=== PATIENT | female | born 1955 | race Caucasian/White ===

== ENCOUNTER → 2021-01-24 14:41 | Outpatient (CLI) | payer OTHER, SELFPAY ==
--- NOTE | 2021-01-24 14:43 | DI.US.S_ITS ---
PROCEDURE: US ABDOMEN LIMITED INDICATIONS: Elevated LFT's, Postmenopausal, Routine screening TECHNIQUE: Real-time focused scanning was performed of the abdomen, with image documentation. COMPARISON: None. FINDINGS: Liver is normal in size and homogeneous in echotexture. Small 5 millimeter echogenic foci are noted in the gallbladder which are nonmobile and nonshadowing likely represent small polyps. Tiny stones are echogenic bile is noted in the dependent portion of the gallbladder. No gallbladder wall thickening with gallbladder wall measuring less than 1 millimeter. No pericholecystic fluid. No sonographic Mejía sign. Biliary tree is nondilated. Common bile duct measures 3.0 millimeters. Pancreas is sonographically normal. IMPRESSION: 1. Liver is sonographically normal. 2. 5 millimeter gallbladder polyps. 3. Tiny gallstones versus echogenic bile. No sonographic evidence of cholecystitis. Dictated by: Elma Connelly MD, PhD on 01/24/2021 at 16:24 Approved by: Elma Connelly MD, PhD on 01/24/2021 at 16:26
--- NOTE | 2021-01-24 14:44 | DI.MG.S_ITS ---
BILATERAL DIGITAL SCREENING MAMMOGRAM 3D/2D WITH CAD: 01/24/2021 CLINICAL: Routine screening. Comparison is made to exam dated: 08/09/2012 [facility]. The tissue of both breasts is heterogeneously dense. This may lower the sensitivity of mammography. Current study was also evaluated with a Computer Aided Detection (CAD) system. There is a developing oval equal density asymmetry in the left breast posterior depth superior region seen on the mediolateral oblique view only. No other significant masses, calcifications, or other findings are seen in either breast. IMPRESSION: INCOMPLETE: NEEDS ADDITIONAL IMAGING EVALUATION The developing oval equal density asymmetry in the left breast is indeterminate. Additional views with possible ultrasound are recommended. This exam was interpreted at Station ID: [id number]. NOTE: For mammograms, a report in lay terms will be sent to the patient. Approximately 15% of breast malignancies will not be visualized mammographically. In the management of a palpable breast mass, a negative mammogram must not discourage biopsy of a clinically suspicious lesion. Electronically Signed By: Deb florence/edna:01/24/2021 20:45:03 letter sent: Additional Imaging Needed ACR BI-RADS Category 0: Incomplete 3340F
== END ==
PROVIDERS: PCP Nurse Practitioner Family; Referring Provider Nurse Practitioner Family; Visit Provider Nurse Practitioner Family
DX: Z12.31 Encounter for screening mammogram for malignant neoplasm of breast; M85.851 Other specified disorders of bone density and structure, right thigh; Z78.0 Asymptomatic menopausal state; Z82.62 Family history of osteoporosis
CPT/HCPCS: 76705; 77063; 77067; 77080

== ENCOUNTER → 2021-01-31 13:37 | Outpatient (CLI) | payer OTHER, MEDICARE, SELFPAY ==
--- NOTE | 2021-01-31 | DI.MG.S_ITS ---
UNILATERAL LEFT DIGITAL DIAGNOSTIC MAMMOGRAM 3D/2D WITH ADDITIONAL VIEWS: 01/31/2021 CLINICAL: Additional evaluation requested from prior study. Comparison is made to exams dated: 01/24/2021 mammogram and 08/09/2012 mammogram - [facility]. The tissue of left breast is heterogeneously dense. This may lower the sensitivity of mammography. There is a possible developing asymmetry in the left breast posterior depth superior region seen on the mediolateral oblique view only. This is not seen in additional views. No other significant masses or calcifications are seen in the breast. IMPRESSION: NEGATIVE There is no mammographic evidence of malignancy. Asymmetry in the left breast is consistent with fibroglandular tissue and is benign. A 1 year screening mammogram is recommended. Exam findings were conveyed to the patient. This exam was interpreted at Station ID: [id number]. NOTE: For mammograms, a report in lay terms will be sent to the patient. Approximately 15% of breast malignancies will not be visualized mammographically. In the management of a palpable breast mass, a negative mammogram must not discourage biopsy of a clinically suspicious lesion. Electronically Signed By: Darwin Mcgraw M.D. [facility]/:01/31/2021 13:59:17 letter sent: Normal Exam ACR BI-RADS Category 1: Negative [id number]
== END ==
PROVIDERS: PCP Nurse Practitioner Family; Referring Provider Nurse Practitioner Family; Visit Provider Nurse Practitioner Family
DX: R92.8 Other abnormal and inconclusive findings on diagnostic imaging of breast (principal); N64.89 Other specified disorders of breast
CPT/HCPCS: 77065; G0279

== ENCOUNTER → 2021-03-30 08:22 | Outpatient (CLI) | payer OTHER, MEDICARE, SELFPAY ==
[2021-03-30 11:37] LABS: COVID19 -Nasal RAPID Negative (Negative)
== END ==
PROVIDERS: PCP Nurse Practitioner Family; Referring Provider Student in an Organized Health Care Education/Training Program; Visit Provider Student in an Organized Health Care Education/Training Program
DX: Z01.812 Encounter for preprocedural laboratory examination (principal); Z20.822 Contact with and (suspected) exposure to COVID-19
CPT/HCPCS: 87635; C9803

== ENCOUNTER 2021-04-01 14:46 | Day surgery (SDC) | payer OTHER, MEDICARE, SELFPAY ==
--- NOTE | 2021-04-01 | PATH_ITS ---
[place] Accession Number: [id number] . 01 Material submitted: . colon - DESCENDING COLON . 01 Clinical history: . SCREENING COLONOSCOPY ABNORMAL MUCOSA 50CM ADN 40CM . 02 Diagnosis: Descending Colon: Superficial portions of colorectal mucosa x3 with scattered benign lymphoid aggregates. Additional levels through the block are noncontributory. MRV 04/07/2021 1331 Local . 02 Electronically signed: . Jossy Patten MD, Pathologist NPI- [id number] . 01 Gross description: . DESCENDING COLON: Received in formalin are 3 fragment(s) of lutz, soft tissue measuring 0.4 x 0.3 x 0.2 cm to 0.4 x 0.3 x 0.1 cm submitted entirely in 1 cassette(s) /NELY 04/02/2021 0655 Local . 02 Pathologist provided ICD-10: Z12.11 . 02 CPT . 310292 Performed at: 01 [facility] [address], [place], [place] [id number] MD Fady Gill MD Phone: [phone] Performed at: 02 [facility] [address] [place], [place] [id number] MD Gem Lima MD Phone: [phone]
--- NOTE | 2021-04-01 12:30 | P.HP_ITS ---
History of Present Illness History of Present Illness Date Patient Seen: 04/01/21 Chief complaint: SCREENING COLONOSCOPY Narrative: 65 Years Old Female seen today for consideration of a screening colonoscopy. There have been no lower GI symptoms suggesting disease such as change in bowel habits, bleeding, abdominal pain or anemia. There's been no family history of colon cancer or colon polyps. Overall health issues have been stable, including no major cardiac events for at least 6 weeks. Past Medical History: Elevated LFTs; 2016 Polyp of gallbladder Osteopenia Postmenopausal HYPERLIPIDEMIA, MIXED Elevated alkaline phosphatase Elevated liver enzymes Elevated blood pressure without diagnosis of hypertension Past Surgical History: Tubal Ligation (07/1993) [place] teeth Family History: Father: d 64 yo; postop CABG for pulmonary bifurcation; asthma Mother: d 70 yo; complications of dementia, BCC - nose age 37, Early onset Dementia age 65yo Sister: () Primary Lateral Muscular Sclerosis, started in thighs Social History: Marital Status: , 2014 Children: G4, P2, SAb2; daughter b 1978, son b 1992; son lives in [place], Daughter in [facility] Occupation: [employer], [employer] in [place] Household Members: self, ex-; dogs Lauren and Lauri, 1 cat Lety Education: 16, 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 Patient History Family & Social History Tobacco & Substance use: Smoking Status Never smoker Meds Home Medications and Allergies Home Medications Medication Instructions Recorded Confirmed Type cholecalciferol (vitamin D3) PO 03/10/19 03/10/19 History krill oil PO 03/10/19 03/10/19 History lactobacillus combination no.8 PO 03/10/19 03/10/19 History [Adult Probiotic] multivitamin with iron-mineral PO 03/10/19 03/10/19 History atorvastatin See Rx Instructions .ROUTE .COMPLEX 04/01/21 04/01/21 History Allergies Allergy/AdvReac Type Severity Reaction Status Date / Time No Known Drug Allergies Allergy Verified 04/01/21 15:07 Review of Systems Review of Systems Narrative: 10 point review of systems completed and found to be noncontributory except for items in HPI. Exam Narrative Exam Narrative: GENERAL: Alert and oriented, appearing stated age and in no acute distress. HEENT: Head normocephalic/atraumatic. LUNGS: Clear to ausculation bilaterally, no wheezes, rhonchi or rales. CV: Normal S1 and S2 with regular rate and rhythm, no audible murmurs, rubs or gallops. ABDOMEN: Soft, non-tender, non-distended, no organomegaly. Positive bowel sounds. EXTREMITIES: No clubbing, cyanosis, or edema. NEURO: Cranial nerves II through XII grossly intact, no focal deficits. PSYCH: Alert and oriented x 3. SKIN: No concerning lesions. Assessment & Plan Assessment & Plan narrative: 1. Screening for colon cancer Plan for colonoscopy. The nature and character of the procedure as well as anticipated results were discussed. The possibility of not completing the procedure was also discussed. Possible complications including aspiration pneumonia, bleeding, perforation and reaction to medications either for sedation or preparation and missed lesions were discussed. Questions were answered and proceeding to the colonoscopy was elected. Informed consent signed. I sincerely appreciate the referral allowing me to participate in this patient's care. Please contact me with any questions or concerns.
--- NOTE | 2021-04-01 12:31 | PM.OP.ENDO ---
Operative Date/Time/Diagnoses Date of procedure: 04/01/21 Procedure Notes SCOAP/Timeout: 3:49 p.m. Procedure in detail: ENDOSCOPIST: Heide Galan MD Sedation RN: Joselin Morin RN Sedation start time: 3:50 p.m. Sedation end time: 4:24 p.m. PROCEDURE: Colonoscopy with cold biopsy, random INDICATIONS: 1. Screening for colon cancer MEDICATION: Levsin 0.125 mg sublingual, incremental doses of Versed and fentanyl until appropriate level sedation achieved. ASA CLASS: 2 CECAL WITHDRAWAL TIME: 14 minutes COMPLICATIONS: None. EXTENT OF PROCEDURE: Cecum. QUALITY OF PREP: Good with portions of liquid stool. PROCEDURE: Prior to insertion of the colonoscope, a digital rectal examination was accomplished with circumferential palpation of the distal rectal mucosa without significant findings being noted. The high-definition pediatric colonoscope was passed into the rectum in the usual fashion and advanced over to the cecum without difficulty. The ileocecal valve, appendiceal stoma, and medial wall all could be inspected and no abnormalities were seen. ASCENDING COLON: As the colonoscope was withdrawn, care was taken to expose and inspect the haustral folds and no abnormalities were seen. HEPATIC FLEXURE: Normal, no polyps, diverticula or other abnormalities. TRANSVERSE COLON: Normal, no polyps, diverticula or other abnormalities. DESCENDING COLON: Patchy areas of inflamed mucosa from 40-50 cm, targeted biopsy taken x4. Otherwise, normal, no polyps, diverticula or other abnormalities. SIGMOID COLON: Normal, no polyps, diverticula or other abnormalities. RECTUM: Normal. J maneuver was produced. There was no significant perianal disease. The J maneuver was broken. The remainder of the rectum was inspected and there was no external hemorrhoid disease. The scope was withdrawn. IMPRESSION: 1. Normal colonoscopy 2. Patchy inflammation, 40-50 cm, descending colon, targeted biopsy taken x4 PLAN: 1. Follow-up in clinic status post pathology results. The possibility of a missed lesion including a malignancy has been discussed with the patient previously. Potential alarm symptoms have been discussed and should be reported immediately.
[2021-04-01 15:13] VITALS: BP 154/93; PULSE 84; RESP 14; TEMP 36.3; O2SAT 97; BMI 24.6
[2021-04-01] MEDS: LACTATED RINGERS 1,000 ML 200 ML IV (15:22)
[2021-04-01] MEDS: HYOSCYAMINE 0.125 MG TABLET PO (15:22)
[2021-04-01] MEDS: MIDAZOLAM 5 MG/5 ML VIAL IV (16:06)
[2021-04-01] MEDS: fentaNYL 250 MCG/5 ML INJ IV (16:06)
[2021-04-01 16:29] VITALS: BP 144/83; PULSE 68; RESP 10; TEMP 36.1; O2SAT 99
[2021-04-01 16:34] VITALS: BP 144/85; PULSE 68; RESP 11; O2SAT 99
[2021-04-01 16:39] VITALS: BP 130/83; PULSE 69; RESP 11; O2SAT 99
[2021-04-01 16:54] VITALS: BP 135/84; PULSE 64; RESP 10; O2SAT 100
[2021-04-01 17:10] VITALS: BP 142/80; PULSE 84; RESP 18; TEMP 36.6; O2SAT 97
== END 2021-04-01 17:20 | disposition home or self-care (01) ==
PROVIDERS: PCP Student in an Organized Health Care Education/Training Program; Referring Provider Student in an Organized Health Care Education/Training Program; Visit Provider Student in an Organized Health Care Education/Training Program
PROC: 0DJD8ZZ Inspection of Lower Intestinal Tract, Via Natural or Artificial Opening Endoscopic (ICD-10-PCS; CPT 45378; principal; 2021-04-01 16:00)
DX: Z12.11 Encounter for screening for malignant neoplasm of colon (principal); E78.2 Mixed hyperlipidemia
CPT/HCPCS: 45380; J2250; J3010

== ENCOUNTER → 2021-12-28 10:23 | Outpatient (ROUT) | payer MEDICARE, OTHER, SELFPAY ==
[2021-12-28 10:58] LABS: INR 1.1 (0.9-1.3); Prothrombin Time 11.9 SECONDS (10.1-12.7)
== END ==
PROVIDERS: PCP Student in an Organized Health Care Education/Training Program; Visit Provider Student in an Organized Health Care Education/Training Program
DX: R74.8 Abnormal levels of other serum enzymes (principal)
CPT/HCPCS: 85610